=== PATIENT | female | born 2000 | race Caucasian/White ===

== ENCOUNTER 2018-05-11 21:22 | Emergency (ER) | payer BC ==
--- NOTE | 2018-05-11 21:24 | ER Report ---
History and Physical Time Seen By MD: 21:24 HPI/ROS CHIEF COMPLAINT: finger lacerations HISTORY OF PRESENT ILLNESS: This is a 17 year old female. She was cutting a pumpkin tonight and slipped, the knife making two small cuts on the palmar aspect of proximal 4th and 5th fingers on the right hand. Continued to bleed, but controlled with direct pressure. Has normal sensation in the fingers. Can move the fingers, but hurts to do so. Last tetanus was about 7 years ago. Allergies: Coded Allergies: No Known Drug Allergies (Unverified , 05/11/18) Home Meds No Active Prescriptions or Reported Meds Reviewed Nurses Notes: Yes Constitutional Vital Sign - Last 24 Hours 05/11/18 21:26 Temp 97.9 Pulse 105 Resp 18 B/P (MAP) 141/99 Pulse Ox 94 O2 Delivery Room Air Physical Exam General: Alert, no distress. Skin: about 2mm laceration on the proximal 5th finger, palmar surface. About 1mm laceration of the proximal 4th finger palmar surface. Cardiovascular: Normal cap refill. Neuro: Normal sensation. Can move the fingers with normal active flexion and extension as well as resisted movement as well. Musculoskeletal: No signs of tendon injury. Medical Decision Making ED Course/Re-evaluation ED Course Procedure: Laceration Repair Verbal consent from patient after discussing repair options, risks and benefits. Wound cleaned extensively with saline and Hibiclens. Anesthesia: 1% lidocaine without epinephrine Location: [place] surface proximal aspect fourth and fifth finger of the right hand. Length: 2 mm on the right fifth finger, 1 mm on the right fourth finger. Character: Linear. There were no deep structures involved. No tendon injury was identified. Wound repair: 3 interrupted 5-0 Prolene sutures on the fifth finger laceration. One interrupted suture on the fourth finger laceration.. The wound repair was simple and performed by myself. Wound care instructions discussed. Sutures need to be removed in 7 days. Tetanus booster given. Decision to Disposition Date: May 11, 2018 Decision to Disposition Time: 21:46 Depart Departure Latest Vital Signs Vital Signs Date Time Temp Pulse Resp B/P (MAP) Pulse Ox O2 Delivery O2 Flow Rate FiO2 05/11/18 21:26 97.9 105 18 141/99 94 Room Air Impression: Primary Impression: Laceration of finger Condition: Improved Disposition: HOME OR SELF-CARE New Scripts No Active Prescriptions or Reported Meds Patient Instructions: Finger Laceration (ED) Additional Instructions: Wound Care: Wash the wound once a day with soap and water. Dry the wound and apply a small amount of antibiotic ointment with a clean dressing. If the dressing becomes wet or dirty, repeat cleaning and dressing as above. No soaking the wound; no swimming. Stitches need to be removed in 5-7 days. Pain Control: Use Tylenol or ibuprofen for pain. Using and ice pack can help reduce swelling. Problem Qualifiers Primary Impression: Laceration of finger Encounter type: initial encounter Finger: unspecified finger Damage to nail status: without damage Foreign body presence: without foreign body Laterality: right Qualified Codes: S61.219A - Laceration without foreign body of unspecified finger without damage to nail, initial encounter MILENA RATLIFF MD May 11, 2018 21:24
[2018-05-11 21:26] VITALS: BP 141/99
[2018-05-11] MEDS ORDERED: DIPHTH/TETANUS/ACEL. PERTUSSIS IM ONLY ONE (21:30)
== END 2018-05-11 21:54 | disposition home or self-care (01) ==
LOC: ER 21:34
DX: S61.214A Laceration without foreign body of right ring finger without damage to nail, initial encounter (principal); S61.216A Laceration without foreign body of right little finger without damage to nail, initial encounter
CPT/HCPCS: 90471; 90715; 99283